=== PATIENT | female | born 1965 | race African-American/Black ===

== ENCOUNTER 2019-03-04 12:18 | Inpatient (IN) ==
[2019-03-04] MEDS ORDERED: NITROGLYCERIN SL 0.4 MG TABLET SL PRN (13:25)
[2019-03-04] MEDS ORDERED: ASPIRIN 325 MG TABLET PO STA (13:25)
[2019-03-04] MEDS ORDERED: ENOXAPARIN 100 MG/ML SYRINGE SUBCUT STA (13:25)
[2019-03-04] MEDS ORDERED: LIDOCAINE 1% 20 ML VIAL ONE (13:28)
[2019-03-04] MEDS ORDERED: HEPARIN/NACL 0.9% 2 UNITS/ML 1,000 ML IV ONE (13:28)
[2019-03-04 13:40] LABS: Basophils % 0.4 % (0.0-0.8); Eosinophils % 0.4 % (0.00-10.9); Hematocrit 35.3 VOL% (35.7-47.0); Hemoglobin 11.4 GM/DL (12.0-16.0); Immature Granulocytes % 0.5 %; Immature Granulocytes Absolute 0.04 #; Lymphocytes % 12.4 % (21.3-54.2); Mean Corpuscular HGB Conc 32.3 GM/DL (32-36); Mean Corpuscular Volume 93.9 FL (87-102); Monocytes % 11.2 % (1.7-12.7); Neutrophils % 75.1 % (38.7-73.9); Platelet Count 175 T/CUMM (130-400); Red Blood Count 3.76 MC/CUMM (3.8-5.5); Red Cell Distribution Width 13.3 % (9.3-17.3); White Blood Count 7.9 T/CUMM (4-12)
[2019-03-04] MEDS ORDERED: HYDROmorphone 2 MG/1 ML VIAL ONE (13:50)
[2019-03-04] MEDS ORDERED: MIDAZOLAM 2 MG/2 ML VIAL ONE (13:50)
[2019-03-04] MEDS ORDERED: VERAPAMIL 5 MG/2 ML VIAL ONE (13:51)
[2019-03-04] MEDS ORDERED: NITROGLYCERIN DRIP 50 MG/250 ML BOTTLE IV ONE (13:51)
[2019-03-04] MEDS ORDERED: EPTIFIBATIDE 20,000 MCG/10 ML VIAL ONE (14:04)
[2019-03-04] MEDS ORDERED: EPTIFIBATIDE 75 MG/100 ML BOTTLE IV ONE (14:05)
[2019-03-04 14:08] LABS: Albumin 3.7 G/DL (3.4-5.0); Bilirubin,Total 0.6 MG/DL (0.2-1.0); Calcium 9.1 MG/DL (8.5-10.1); Total Protein 7.3 G/DL (6.4-8.3)
[2019-03-04] MEDS ORDERED: ZALEPLON 5 MG CAPSULE PO PRN (14:36)
[2019-03-04] MEDS ORDERED: MAGNESIUM SULF RIDER 4 GM in PREMIX 1 EACH IV PRN (14:36)
[2019-03-04] MEDS ORDERED: ONDANSETRON 4 MG/2 ML VIAL IV PRN (14:36)
[2019-03-04] MEDS ORDERED: BISACODYL 5 MG TABLET PO PRN (14:36)
[2019-03-04] MEDS ORDERED: MORPHINE 4 MG/1 ML VIAL IV PRN (14:36)
[2019-03-04] MEDS ORDERED: ACETAMINOPHEN 325 MG TABLET PO PRN (14:36)
[2019-03-04] MEDS ORDERED: MAGNESIUM SULF RIDER 2 GM in PREMIX 1 EACH IV PRN (14:36)
[2019-03-04 16:19] LABS: CKMB % 8.7 %
[2019-03-04 16:21] LABS: Troponin I 8.38 NG/ML (0.00-0.045)
[2019-03-04 16:38] LABS: Apearance,Urine CLEAR (Clear); Bilirubin,Urine Negative (Negative); Blood, Urine Negative (Negative); Glucose,Urine (UA) Negative (Negative); Ketones,Urine Negative (Negative); Mucus,Urine Occasional /LPF (Occasional); Nitrite,Urine Negative (Negative); Protein,Urine Negative; RBC,Urine <1 /HPF (0-4); Squamous Epithelial Cell,Urine Occasional /HPF (0-10); Urine Color Straw (Yellow); Urine Specific Gravity 1.015 (1.001-1.035); Urine Urobilinogen < 2.0 EU/DL (0.2-1.0); WBC,Urine <1 /HPF (0-6)
[2019-03-04] MEDS: POTASSIUM CHLORIDE 20 MEQ TABLET PO PRN ×2 (18:05→21:33)
[2019-03-04 18:55] LABS: CKMB % 8.6 %
[2019-03-04 19:00] LABS: Troponin I 16.4 NG/ML (0.00-0.045)
[2019-03-04] MEDS ORDERED: ATORVASTATIN 10 MG TABLET PO SCH (21:00)
[2019-03-04] MEDS ORDERED: ROSUVASTATIN 20 MG TABLET PO SCH (21:00)
[2019-03-04 21:12] LABS: Troponin I 16.7 NG/ML (0.00-0.045)
[2019-03-04] MEDS: TICAGRELOR 90 MG TABLET PO SCH (21:27)
[2019-03-05 02:53] LABS: Basophils % 0.3 % (0.0-0.8); Eosinophils % 0.3 % (0.00-10.9); Hematocrit 28.9 VOL% (35.7-47.0); Hemoglobin 9.3 GM/DL (12.0-16.0); Immature Granulocytes % 0.6 %; Immature Granulocytes Absolute 0.04 #; Lymphocytes # 0.7 10*3/uL (1.4-4.0); Lymphocytes % 11.1 % (21.3-54.2); Mean Corpuscular HGB Conc 32.2 GM/DL (32-36); Mean Corpuscular Volume 93.8 FL (87-102); Mean Platelet Volume 10.1 FL (9.6-12.0); Neutrophils % 76.7 % (38.7-73.9); Platelet Count 143 T/CUMM (130-400); Red Blood Count 3.08 MC/CUMM (3.8-5.5); Red Cell Distribution Width 13.3 % (9.3-17.3); White Blood Count 6.2 T/CUMM (4-12)
[2019-03-05 03:08] LABS: Calcium 8.4 MG/DL (8.5-10.1); Osmolality,Calculated 273.5 MOS/KG (273-304)
[2019-03-05 03:19] LABS: Risk Ratio 2.31; VLDL CHOLESTEROL 37.2 MG/DL
[2019-03-05] MEDS: TICAGRELOR 90 MG TABLET PO SCH (08:30)
[2019-03-05] MEDS ORDERED: CETIRIZINE 10 MG TABLET PO SCH (09:00)
[2019-03-05] MEDS ORDERED: ASPIRIN CHEW 81 MG TABLET PO SCH (09:00)
[2019-03-05] MEDS ORDERED: amLODIPine 5 MG TABLET PO SCH (09:00)
[2019-03-05] MEDS ORDERED: PANTOPRAZOLE 40 MG TABLET PO SCH (09:00)
[2019-03-05] MEDS ORDERED: LISINOPRIL 10 MG TABLET PO SCH (09:00)
[2019-03-05] MEDS ORDERED: ALLOPURINOL 300 MG TABLET PO SCH (09:00)
[2019-03-05] MEDS ORDERED: amLODIPine 10 MG TABLET PO SCH (09:00)
[2019-03-05] MEDS ORDERED: METOPROLOL TARTRATE 25 MG TABLET PO SCH (09:00)
[2019-03-05] MEDS ORDERED: CHOLECALCIFEROL 1,000 UNIT TABLET PO SCH (09:00)
[2019-03-05] MEDS ORDERED: LOPERAMIDE 2 MG CAPSULE PO ONE (13:01)
[2019-03-05] MEDS ORDERED: LOPERAMIDE 2 MG CAPSULE PO PRN (13:02)
[2019-03-05] MEDS ORDERED: MAGNESIUM SULF RIDER 2 GM in PREMIX 1 EACH IV ONE (13:36)
[2019-03-05 17:23] VITALS: BP 106/63
== END 2019-03-05 18:00 | disposition home or self-care (01) | DRG 247 ==
LOC: N.ED 12:18 → N.CC 13:43
PROVIDERS: ADMIT Internal Medicine Cardiovascular Disease; ATTEND Internal Medicine Cardiovascular Disease